=== PATIENT | female | born 1985 | race Caucasian/White ===

== ENCOUNTER 2025-01-19 11:27 | Emergency (ER) | payer OTHER ==
[~2025-01-19] VITALS: Ht 157.5 cm; Wt 57.0 kg
[2025-01-19 11:30] VITALS: TEMP 36.9; O2SAT 99
[2025-01-19 12:07] VITALS: BP 121/75; PULSE 70; RESP 16; O2SAT 100
[2025-01-19 12:15] LABS: BASOPHILS % 0.8 % (0.0-2.0); EOSINOPHILS % 0.9 % (0.0-5.0); HEMATOCRIT. 37.8 % (36.0-48.0); HEMOGLOBIN. 12.7 g/dL (12.0-16.0); LYMPHOCYTES % 21.2 % (20.0-50.0); MEAN PLATELET VOLUME 7.9 fl (7.4-10.4); MONOCYTES % 5.8 % (2.0-8.0); NEUTROPHILS % 71.3 % (40.0-76.0); PLATELET 347 x1000/uL (130-400); RED BLOOD CELL COUNT 4.03 mill/uL (4.2-5.4); RED CELL DISTRIBUTION WIDTH 13.4 % (11.6-14.6)
[2025-01-19 12:29] LABS: CREATININE 0.7 mg/dL (0.6-1.0); UREA NITROGEN BLOOD 7 mg/dL (9-23)
[2025-01-19 13:04] LABS: B-HCG QUANTITATIVE 180831 mIU/mL (<6)
== END 2025-01-19 15:49 | disposition home or self-care (01) ==
LOC: ER 12:31
DX: O20.0 Threatened abortion (principal); Z55.6 Problems related to health literacy; Z3A.01 Less than 8 weeks gestation of pregnancy
CPT/HCPCS: 80048; 81025; 84702; 85025; 86850; 86900; 86901; 36415; 76801; 76817; 99284; Z7610